=== PATIENT | female | born 1970 | race Two or more races ===

== ENCOUNTER 2017-06-05 19:23 | Emergency (ER) | payer BC, OTHER ==
[~2017-06-05] VITALS: Ht 162.6 cm; Wt 72.6 kg
[2017-06-05 20:05] VITALS: BP 129/74
[2017-06-05] MEDS ORDERED: TDAP [DIPH/PERTUSSIS/TET] 0.5 ML VIAL IM ONE ×2 (20:16→20:30)
[2017-06-05] MEDS ORDERED: LIDOCAINE 1%-EPI 1:100,000 50 ML VIAL IJ ONE (20:25)
[2017-06-05] MEDS ORDERED: LIDOCAINE 1%-EPI 1:100,000 20 ML VIAL TP ONE (21:00)
== END 2017-06-05 21:02 | disposition home or self-care (01) ==
LOC: ER 19:25
DX: S81.812A Laceration without foreign body, left lower leg, initial encounter (principal); W54.0XXA Bitten by dog, initial encounter; Y93.89 Activity, other specified; Y92.89 Other specified places as the place of occurrence of the external cause; Y99.8 Other external cause status
CPT/HCPCS: 12002; 90471; 90715; 99284; A4606; A6402; A6403; J3490; Z7610